=== PATIENT | female | born 1950 | race Caucasian/White ===

== ENCOUNTER 2024-11-13 19:45 | Emergency (ER) | payer OTHER ==
[~2024-11-13] VITALS: Ht 165.1 cm; Wt 52.6 kg
[2024-11-13] MEDS ORDERED: ONDANSETRON 4 MG/2 ML VIAL ONE (20:10)
[2024-11-13] MEDS ORDERED: PANTOPRAZOLE SODIUM 40 MG VIAL ONE (20:10)
[2024-11-13] MEDS: IV NORMAL SALINE 500 ML BAG IV ONE (20:29)
[2024-11-13] MEDS: ONDANSETRON 4 MG/2 ML VIAL IV ONE (20:29)
[2024-11-13] MEDS: PANTOPRAZOLE SODIUM IV 40 MG in IV DEXTROSE 5% 100 ML IV ONE (20:29)
[2024-11-13 20:30] LABS: PLATELET COUNT (AUTO) 190 K/uL (179-408); RED BLOOD CELL COUNT(AUTO) 3.99 MIL/uL (3.63-4.92); RED CELL DISTRIBUTION WIDTH 13.4 % (12.3-17.7); WHITE BLOOD COUNT (AUTO) 5.6 K/uL (3.8-11.8)
[2024-11-13 21:22] LABS: ASPARTATE AMINOTRANSFERASE 20 U/L (15-37); CREATININE 0.9 mg/dL (0.6-1.3); SODIUM SERUM 140 mmol/L (136-145); TOTAL PROTEIN, SERUM 7.2 g/dL (6.4-8.2); UREA NITROGEN, BLOOD 21 mg/dL (7-18)
[2024-11-13] MEDS ORDERED: DICY10CA13 PO (21:48)
[2024-11-13] MEDS ORDERED: PANT40TA2 PO (21:48)
[2024-11-13] MEDS ORDERED: ONDA4TAB5 PO (21:48)
[2024-11-13] MEDS: MAGNESIUM OXIDE 400 MG TABLET PO ONE (21:59)
[2024-11-13 22:10] VITALS: BP 112/59; TEMP 98.1; O2SAT 97
[2024-11-13 22:17] LABS: *BILIRUBIN,URIN NEGATIVE (NEGATIVE); *BLOOD, URINE TRACE (NEGATIVE); *CLARITY,URINE CLEAR (CLEAR); *COLOR,URINE YELLOW (YELLOW); *KETONES,URINE 2+ (NEGATIVE); *PROTEIN,URINE NEGATIVE (NEGATIVE); *UROBILINOGEN,URINE 0.2 E.U./dl (NORMAL); LEUKOCYTE ESTERASE ,URINE NEGATIVE (NEGATIVE); NITRITE, URINE NEGATIVE (NEGATIVE); UGLUCOSE NEGATIVE (NEGATIVE)
[2024-11-13 22:25] LABS: SQUAMOUS EPITHELIAL CELL,UR FEW /HPF (NONE SEEN)
== END 2024-11-13 22:10 | disposition home or self-care (01) ==
LOC: ER 19:53
DX: R11.0 Nausea (principal); R19.7 Diarrhea, unspecified; R53.1 Weakness; E83.42 Hypomagnesemia; Z79.899 Other long term (current) drug therapy; Z88.2 Allergy status to sulfonamides; Z88.5 Allergy status to narcotic agent
CPT/HCPCS: 99284; 96365; 96366; 96375; 80053; 81001; 83690; 83735; 85025; 86140; 36415; 93005; 83605; J2405; J2470 ×2; J7040; A4606; A4663